=== PATIENT | male | born 1950 | race Caucasian/White ===

== ENCOUNTER 2016-12-27 08:51 | Inpatient (IN) | payer OTHER ==
[~2016-12-27] VITALS: Ht 172.7 cm; Wt 81.7 kg
[~2016-12-27 08:51] MED LIST: BACTDS PO; BEN25 PO; CEPH-443 PO; CLOT30CR24 TOP
[2016-12-27] MEDS ORDERED: SOD CHLORIDE 0.9% 1,000 ML IV STA ×2 (09:06→13:11)
--- NOTE | 2016-12-27 09:33 | ERA ---
ER Documentation Chief Complaint Date/Time DATE: 12/27/16 TIME: 09:23 Chief Complaint HAS BEEN HALLUCINATING DIZZY AND WEAK STARTED LAST NIGHT HPI This is a 66-year-old male with a known history of depression on Wellbutrin, hypertension and takes Desyrel for the past 6 months. The patient indicated he took 50mg of Desyrel and 200 mg of Lamictal at 12:15 AM, 9 hours prior to arrival. The patient's last known normal time was at 10:30 PM, 11 hours prior to arrival according to his . 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 His stated he had slept then and she woke him up at 7:30 AM and he appeared to be experiencing visual hallucinations as he stated there was a blue-eyed monster in the room. His indicated that he did not complain of a headache and that she immediately brought him to the emergency department to be further evaluated. He was able to ambulate but appeared very unsteady in his gait. She states he could have accidentally taken too much of his medication and denies any history of alcohol abuse. The patient denies any chest pain or pressure that radiates to the neck arm back or jaw. His stated his speech was slurred which has been present upon awakening at 7:30 AM. She indicates that the patient has been experiencing a significant amount of stress from his job over the past several weeks and has very poor sleep patterns as he has not been sleeping much over the past several days. He has not had a fever shaking or chills. There is been no recent remote sick contacts. He has not had a productive or nonproductive cough. ROS All systems reviewed and are negative except as per history of present illness. Medications Home Meds Reported Medications Trazodone Hcl* (Trazodone Hcl*) 50 Mg Tablet, 50 MG PO QHS, #30 TAB 12/27/16 Lamotrigine* (Lamictal*) 200 Mg Tablet, 200 MG PO QHS, TAB 12/27/16 Discontinued Scripts Cephalexin* (Keflex*) 500 Mg Capsule, 500 MG PO QID for 7 Days, CAP Prov:BENITA DORSEY PA-C 09/07/16 Sulfamethoxazole-Trimethoprim* (Bactrim* DS) 800-160 Mg Tab, 1 TAB PO BID for 7 Days, TAB Prov:BENITA DORSEYVirgil MCCORMACK 09/07/16 Diphenhydramine Hcl* (Benadryl*) 25 Mg Cap, 25 MG PO Q6 Y for ITCHING/RASH, #30 TAB Prov:BENITA DORSEYVirgil MCCORMACK 09/07/16 Clotrimazole* (Clotrimazole* AF) 1% - 30 Gm Cream.gm., 1 APPLIC TOP BID for 7 Days, TUB Prov:BENITA DORSEYVirgil MCCORMACK 09/07/16 Allergies Allergies: Coded Allergies: No Known Allergy (Unverified , 12/27/16) PMhx/Soc Hx Cardiac Disorders: Yes (htn) Hx Alcohol Use: No Hx Substance Use: No Hx Tobacco Use: No Physical Exam Vitals Vital Signs Date Time Temp Pulse Resp B/P Pulse Ox O2 Delivery O2 Flow Rate FiO2 12/27/16 10:47 89 18 97 Nasal Cannula 2.0 12/27/16 09:30 Nasal Cannula 2 12/27/16 09:05 46 14 159/81 100 Room Air 12/27/16 08:53 94.4 46 18 145/78 96 Physical Exam Constitutional:Well-developed. Well-nourished. HEENT:Normocephalic. Atraumatic.Pupils were 2 mm and reactive to light bilaterally with Dry mucous membranes.No tonsillar exudates. Neck: No nuchal rigidity. No lymphadenopathy. No posterior cervical spine tenderness or step-offs. Respiratory: Not using accessory muscles of respiration.Lungs were clear to auscultation bilaterally. No rhonchi. No rales. No wheezing. Cardiovascular: Regular rate regular rhythm.No murmurs. No rubs were appreciated.S1, S2 normal. Distal pulses are palpable 2+ bilaterally. GI: Abdomen was soft. Nontender. Non Distended. No pulsatile abdominal masses or bruits. No rebound. No guarding. Bowel sounds were present and normal. Muscle skeletal: Full range of motion of both the upper and lower extremities bilaterally.Normal muscle tone.No assymetrical calf tenderness or swelling. Skin: No petechia, no purpura. No lesions on the palms or the soles of the feet. No maculopapular rash. NEURO: Patient was alert, awake, orientated x3.No facial droop. Patient was drowsy but was answering all questions appropriately. Gait was not observed as patient was too weak to ambulate. Speech was slurred. Result Diagram: 12/27/1692612/27/16926 Results 24 hrs Laboratory Tests Test 12/27/16 09:27 12/27/16 10:25 Acetaminophen Level < 10.0ug/ml Activated Partial Thromboplast Time 26.9Sec Alanine Aminotransferase (ALT/SGPT) 40IU/L Albumin 3.8g/dl Albumin/Globulin Ratio 1.05 Alkaline Phosphatase 127IU/L Anion Gap 15 Aspartate Amino Transf (AST/SGOT) 28IU/L B-Type Natriuretic Peptide 39PG/ML Basophils # 0.010^3/ul Basophils % 0.2% Blood Urea Nitrogen 19mg/dl Calcium Level 9.0mg/dl Carbon Dioxide Level 28mmol/L Chloride Level 100mmol/L Creatine Kinase 229IU/L Creatine Kinase Index 1.5 Creatinine 0.94mg/dl Creatinine Kinase MB (Mass) 3.48ng/ml Digoxin Level < 0.4ng/ml Direct Bilirubin 0.00mg/dl Eosinophils # 0.110^3/ul Eosinophils % 2.3% Ethyl Alcohol Level < 10.0mg/dl Globulin 3.60g/dl Glucose Level 191mg/dl Hematocrit 38.8% Hemoglobin 14.2g/dl INR International Normalized Ratio 0.93 Indirect Bilirubin 0.4mg/dl Lymphocytes # 1.510^3/ul Lymphocytes % 27.6% Mean Corpuscular Hemoglobin 32.1pg Mean Corpuscular Hemoglobin Concent 36.6g/dl Mean Corpuscular Volume 87.6fl Mean Platelet Volume 9.2fl Monocytes # 0.510^3/ul Monocytes % 9.6% Neutrophils # 3.210^3/ul Neutrophils % 59.7% Nucleated Red Blood Cells # 0.010^3/ul Nucleated Red Blood Cells % 0.0/100WBC Platelet Count 43613^3/UL Potassium Level 3.2mmol/L Prothrombin Time 12.5Sec Prothrombin Time Ratio 1.0 Red Blood Count 4.4310^6/ul Red Cell Distribution Width 11.9% Salicylates Level < 1.0mg/dl Sodium Level 140mmol/L Total Bilirubin 0.4mg/dl Total Protein 7.4g/dl Troponin I < 0.012ng/ml White Blood Count 5.310^3/ul Lactic Acid Level 2.4mmol/L Current Medications Medications (Trade) Dose Ordered Sig/Ze Route PRN Reason Start Time Stop Time Status Last Admin Dose Admin Sodium Chloride (NS) 1,000 ml @ 1,000 mls/hr Q1H STAT IV 12/27/16 09:06 12/27/16 10:05 DC 12/27/16 09:34 Albuterol (Proventil 0.5% (Neb)) 5 mg ONCE STAT NEB 12/27/16 10:06 12/27/16 10:07 DC 12/27/16 10:47 Ipratropium [place] (Atrovent 0.02% (Neb)) 0.5 mg ONCE STAT NEB 12/27/16 10:06 12/27/16 10:07 DC 12/27/16 10:47 Potassium Chloride (Klor-Con 20) 20 meq ONCE STAT PO 12/27/16 10:20 12/27/16 10:23 DC Procedures/MDM The patient presented to the emergency department with an acute and persistent change in their mental status. The differential diagnosis is diverse however reversible causes such as hypoglycemia, opiate overdose, thiamine deficiency were immediately considered. The patient was placed on a bus monitor, continuous pulse oximetry and IV access was established. The patients airway was secure however hypoxic events such as anemia, shock, or severe pulmonary disease were all considered as etiologies in this patients presentation. Circulation assessed with good cap refill and did not require fluids or pressure support. Finger stick for rapid glucose determined to be normal. 12 Lead EKG tracing ordered and reviewed by myself showed: Sinus bradycardia 47 bpm and no arrhythmia. ID interval prolonged at 222 ms with a first-degree AV QRS duration normal. No ST segment elevation No ST segment depression. No changes consistent with acute ischemia. I obtained a 1 view chest radiograph for and reviewed by myself which indicated the following: No acute cardiopulmonary disease. Low lung volumes with bibasilar atelectasis Questionable loose bodies within the left glenohumeral joint The patient's lactic acid was elevated however I did not feel it patient was septic as there did not appear to be suspected or documented infection and the only SIRS criteria was that the temperature was less than 96.8 therefore antibiotics were not started but I did obtain blood cultures and urine cultures that can be followed up upon admission Given that the patient presented to the emergency department changed in his mental status I did obtain a CT scan of the patient's head which showed no acute intracerebral hemorrhage mass-effect or midline shift. The patient was hyperkalemic and supplemented with oral potassium. He received a liter bolus of normal saline. The patient's airway was intact and given the patient's physical exam findings I did feel the encephalopathy could have been a result of accidental overdose of his medications. He will however be admitted for observation for the encephalopathy to the hospitalist in serious condition. He will go to the telemetry service. Departure Diagnosis: Primary Impression: Hallucinations Additional Impressions: Encephalopathy acute Lactic acidosis Condition: Serious DYLLAN MONZON Dec 27, 2016 09:33
--- NOTE | 2016-12-27 09:39 | RADRPT ---
PROCEDURE: Chest x-ray CLINICAL INDICATION: Altered level of consciousness TECHNIQUE: Chest single view COMPARISON: None FINDINGS: The heart is normal in size. The pulmonary vessels are normal in caliber. There are low lung volume s with bibasilar atelectasis. Lungs otherwise the costophrenic angles sharp. Bones are osteopenic. There is questionable loose body within the left glenohumeral joint IMPRESSION: No acute cardiopulmonary disease. Low lung volumes with bibasilar atelectasis Questionable loose bodies within the left glenohumeral joint RPTAT: HH .Sebas Herbert MD, Date Time Electronically viewed and signed by .Sebas Herbert MD, on 12/27/2016 09:39 .W/
[2016-12-27 09:41] LABS: ADD SCAN DIFF NO
[2016-12-27 09:44] LABS: BASOPHILS % 0.2 % (0.0-2.0); EOSINOPHILS # 0.1 10^3/ul (0.0-0.5); EOSINOPHILS % 2.3 % (0.0-7.0); HEMATOCRIT 38.8 % (42.0-52.0); HEMOGLOBIN 14.2 g/dl (14.0-18.0); LYMPHOCYTES # 1.5 10^3/ul (0.8-2.9); LYMPHOCYTES % 27.6 % (15.0-51.0); MEAN CORPUSCULAR HEMOGLOBIN 32.1 pg (29.0-33.0); MEAN CORPUSCULAR HGB CONC 36.6 g/dl (32.0-37.0); MEAN CORPUSCULAR VOLUME 87.6 fl (82.0-101.0); MEAN PLATELET VOLUME 9.2 fl (7.4-10.4); MONOCYTE # 0.5 10^3/ul (0.3-0.9); MONOCYTES % 9.6 % (0.0-11.0); NEUTROPHIL # 3.2 10^3/ul (1.6-7.5); NEUTROPHILS % 59.7 % (39.0-77.0); PLATELET COUNT 150 10^3/UL (140-415); RED BLOOD COUNT 4.43 10^6/ul (4.70-6.10); RED CELL DISTRIBUTION WIDTH 11.9 % (11.5-14.5); WHITE BLOOD COUNT 5.3 10^3/ul (4.8-10.8)
[2016-12-27 09:51] LABS: ALBUMIN 3.8 g/dl (3.3-4.9)
[2016-12-27 09:52] LABS: CHLORIDE 100 mmol/L (97-110); POTASSIUM 3.2 mmol/L (3.5-5.1); SODIUM 140 mmol/L (135-144)
[2016-12-27 09:54] LABS: ALBUMIN/GLOBULIN RATIO 1.05; ALKALINE PHOSPHATASE 127 IU/L (42-121); ANION GAP 15 (8-16); ASPARTATE AMINO TRANSFERASE 28 IU/L (15-46); BILIRUBIN,INDIRECT 0.4 mg/dl (0-1.1); BILIRUBIN,TOTAL 0.4 mg/dl (0.2-1.3); CARBON DIOXIDE 28 mmol/L (21-31); CREATININE 0.94 mg/dl (0.61-1.24); TOTAL PROTEIN 7.4 g/dl (6.1-8.1)
[2016-12-27] MEDS ORDERED: LAMO200T18 PO (09:54)
[2016-12-27] MEDS ORDERED: TRAZ50TA18 PO (09:54)
[2016-12-27 09:55] LABS: ALANINE AMINOTRANSFERASE 40 IU/L (13-69); BLOOD UREA NITROGEN 19 mg/dl (7-20); CREATINE KINASE 229 IU/L (23-200); GLUCOSE 191 mg/dl (70-220); INR 0.93; PROTIME 12.5 Sec (12.2-14.2)
[2016-12-27 09:56] LABS: ETHANOL < 10.0 mg/dl; PARTIAL THROMBOPLASTIN TIME 26.9 Sec (25.0-35.0); SALICYLATE < 1.0 mg/dl (5.0-30.0)
[2016-12-27 10:01] LABS: ACETAMINOPHEN < 10.0 ug/ml (10.0-30.0)
[2016-12-27 10:04] LABS: B-TYPE NATRIURETIC PEPTIDE 39 PG/ML (0-125)
--- NOTE | 2016-12-27 10:04 | RADRPT ---
PROCEDURE: CT brain without contrast CLINICAL INDICATION: Hallucinations, dizziness, generalized weakness TECHNIQUE: CT of the brain without contrast performed on a multidetector CT scanner, with multiplan ar reformats. One or more of the following dose reduction techniques were used: Automated exposure control, adjustment in mA and / or kV according to patient size, use of iterative reconstructive moira hnique. CTDIvol = 40 mGy; DLP = 555 mGy-cm. COMPARISON: None available FINDINGS: No acute intracranial hemorrhage is identified. No extra-axial fluid collection is seen. There is no mass effect. No midline shift is identified. Ventricles and sulci are mildly enlarged compatible with generalized volume loss. There are minimal areas of hypodensity in the periventricular - deep white matter which are nonspeci fic but suggestive of chronic small vessel ischemic changes. Coates-white differentiation is preserve d. Osseous structures are unremarkable. Mastoid air cells and imaged paranasal sinuses grossly clear. IMPRESSION: 1. No evidence of acute intracranial pathology. 2. Mild generalized volume loss, with minimal chronic small vessel ischemic changes. RPTAT: VV .Robert Almaraz MD, Date Time Electronically viewed and signed by .Robert Almaraz MD, on 12/27/2016 10:03 .O/
[2016-12-27] MEDS ORDERED: ALBUTEROL 0.5% (NEB) 2.5 MG/0.5 ML AMP NEB STA (10:06)
[2016-12-27] MEDS ORDERED: IPRATROPIUM (NEB) 0.5 MG/2.5 ML AMP NEB STA (10:06)
[2016-12-27 10:09] LABS: CK-MB 3.48 ng/ml (0.0-2.4); TROPONIN-I < 0.012 ng/ml (0.00-0.12)
[2016-12-27] MEDS ORDERED: POTASSIUM CHLORIDE (SR) 20 MEQ TAB PO STA (10:20)
[2016-12-27] MEDS ORDERED: ONDANSETRON 4 MG INJ IV PRN ×2 (11:30→16:00)
[2016-12-27] MEDS ORDERED: ACETAMINOPHEN 325 MG TAB PO PRN (11:30)
[2016-12-27 11:46] LABS: ADD UMIC YES; URINE BILIRUBIN (Dip) NEGATIVE (NEGATIVE); URINE BLOOD (Dip) TRACE (NEGATIVE); URINE COLOR LT. YELLOW (YELLOW); URINE GLUCOSE (Dip) NEGATIVE (NEGATIVE); URINE KETONES (Dip) NEGATIVE (NEGATIVE); URINE LEUKOCYTE ESTERASE (Dip) NEGATIVE (NEGATIVE); URINE NITRITE (Dip) NEGATIVE (NEGATIVE); URINE TOTAL PROTEIN (Dip) NEGATIVE (NEGATIVE); URINE UROBILINOGEN (Dip) 0.2 E.U./dL (0.1-1.0)
[2016-12-27 12:14] LABS: BARBITURATES Negative (NEGATIVE); BENZODIAZEPINES Negative (NEGATIVE); CANNABINOIDS Negative (NEGATIVE); OPIATES Negative (NEGATIVE)
[2016-12-27 12:19] LABS: URINE RBCS 0-2 /HPF (0)
[2016-12-27 12:28] LABS: COCAINE Negative (NEGATIVE)
[2016-12-27] MEDS ORDERED: CLON-379 PO (13:15)
[2016-12-27] MEDS ORDERED: BUPR150T18 PO (13:15)
[2016-12-27] MEDS ORDERED: LISI20TA11 PO (13:15)
[2016-12-27] MEDS ORDERED: METO-429 PO (13:17)
[2016-12-27] MEDS ORDERED: POTA10TA37 PO (13:17)
[2016-12-27] MEDS ORDERED: AMLO5TAB4 PO (13:18)
[2016-12-27] MEDS ORDERED: ASPI-664 PO (13:18)
[2016-12-27] MEDS ORDERED: BUSP10TA2 PO (13:19)
[2016-12-27] MEDS ORDERED: HYDR12.58 PO (13:19)
[2016-12-27] MEDS ORDERED: hydrALAzine 20 MG INJ IV PRN (16:00)
[2016-12-27] MEDS ORDERED: NACL 0.9% 3 ML SYG IV SCH (16:00)
[2016-12-27 16:14] VITALS: TEMP 96.5
--- NOTE | 2016-12-27 16:20 | HP ---
DATE OF ADMISSION: 12/27/2016 CHIEF COMPLAINT: Altered mental status. HISTORY OF PRESENT ILLNESS: The patient is a 66-year-old male with history of depression on Wellbut rin, hypertension. The patient is on Desyrel for the past 6 months. He reportedly took 50 mg of De syrel and mg of Lamictal last night, and that is prior to arrival to the ED. The patient was reportedly last seen normal at 10:30 p.m. 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 The patient did not wake up his usual christiano e. When he woke up, he was experiencing visual hallucinations. The patient ambulated, but unsteady in his gait. The patient's stated that he could have taken too much of his medication. No hi story of any alcohol abuse. The patient had no reported complaints of any chest pain. The patient' s speech was slurred according to the , which was noted upon wakening in the a.m. The patient krishnan d reported experiencing a significant amount of stress from the job over the past several weeks. He has had poor sleep patterns. He has not had any other reported fevers, shaking or chills. No repo rted sick contacts. History is obtained by the ER physician as patient is lethargic and unable to p rovide any history. PAST MEDICAL HISTORY: Hypertension and depression. HOME MEDICATIONS: 1. Trazodone. 2. Lamictal. ALLERGIES: NO KNOWN DRUG ALLERGIES. FAMILY HISTORY: Unknown. SOCIAL HISTORY: No reports of any alcohol abuse, substance use or tobacco abuse per history obtaine d in the ER. REVIEW OF SYSTEMS: A 12-point review of systems cannot be obtained as the patient is lethargic. PHYSICAL EXAMINATION: VITAL SIGNS: Temperature 94.4, pulse 61, respiratory rate is 18, blood pressure is 132/75, saturati on 100% on room air. GENERAL: Unarousable, nonverbal. HEENT: Normocephalic, atraumatic. CHEST: Clear to auscultation. CARDIOVASCULAR: Regular rate and rhythm. ABDOMEN: Nondistended, nontender, soft. EXTREMITIES: No clubbing, cyanosis, or edema. LABORATORY DATA: White count 7.3, hemoglobin 14.2, platelets 150. Chemistry within normal limits e xcept for a potassium of 3.2. Lactic acid was 2.4, now 1.8. Alkaline phosphatase is 127. Creatini ne kinase 229. INR is 0.93. UA within normal limits. Urine tox is negative. DIAGNOSTIC DATA: Chest x-ray shows no acute disease, atelectasis. Questionable loose bodies within the left glenohumeral joint. Brain CT shows no evidence of acute pathology, mild generalized volum e loss, minimal chronic small vessel ischemic changes. ASSESSMENT AND PLAN: 1. Acute encephalopathy, likely secondary to therapeutic drug overdose. It is unknown if patient w as intentionally trying to overdose or it was an accident. We will monitor. We will give IV fluids . 2. History of hypertension. Keep patient n.p.o. We will give hydralazine as needed. 3. Hypokalemia has been repleted in the ED. 4. Prophylaxis: Sequential compression devices. Dictated By: ALYSSA LUND MD BS/NTS Conf#: [id number] DID#: [id number]
[2016-12-27 17:26] VITALS: PULSE 47
[2016-12-27 17:30] VITALS: Ht 172.7 cm; Wt 81.7 kg
[2016-12-27 18:02] VITALS: BP 156/82; PULSE 48; RESP 16
[2016-12-27] MEDS: D5W-0.45 NACL + KCL 20 MEQ 1,000 ML IV SCH (19:06)
[2016-12-27 20:00] VITALS: BP 150/71; RESP 20
[2016-12-27 20:33] VITALS: PULSE 46
[2016-12-28] VITALS (7 sets, daily range): BP systolic 134–142; BP diastolic 66–78; PULSE 47–78; RESP 20
[2016-12-28] MEDS: D5W-0.45 NACL + KCL 20 MEQ 1,000 ML IV SCH ×3 (01:39→11:40)
[2016-12-28 07:29] LABS: ADD SCAN DIFF NO
[2016-12-28 07:30] LABS: BASOPHILS % 0.2 % (0.0-2.0); EOSINOPHILS # 0.1 10^3/ul (0.0-0.5); EOSINOPHILS % 1.9 % (0.0-7.0); HEMATOCRIT 39.4 % (42.0-52.0); HEMOGLOBIN 14.3 g/dl (14.0-18.0); LYMPHOCYTES # 1.3 10^3/ul (0.8-2.9); LYMPHOCYTES % 22.5 % (15.0-51.0); MEAN CORPUSCULAR HEMOGLOBIN 31.8 pg (29.0-33.0); MEAN CORPUSCULAR HGB CONC 36.3 g/dl (32.0-37.0); MEAN CORPUSCULAR VOLUME 87.6 fl (82.0-101.0); MEAN PLATELET VOLUME 9.5 fl (7.4-10.4); MONOCYTE # 0.4 10^3/ul (0.3-0.9); MONOCYTES % 6.3 % (0.0-11.0); NEUTROPHIL # 4.1 10^3/ul (1.6-7.5); NEUTROPHILS % 68.8 % (39.0-77.0); PLATELET COUNT 149 10^3/UL (140-415); WHITE BLOOD COUNT 5.9 10^3/ul (4.8-10.8)
[2016-12-28 07:44] LABS: ALBUMIN 3.6 g/dl (3.3-4.9)
[2016-12-28 07:45] LABS: POTASSIUM 3.5 mmol/L (3.5-5.1)
[2016-12-28 07:47] LABS: ALBUMIN/GLOBULIN RATIO 1.09; BILIRUBIN,INDIRECT 0.5 mg/dl (0-1.1); BILIRUBIN,TOTAL 0.5 mg/dl (0.2-1.3); CREATININE 0.78 mg/dl (0.61-1.24); TOTAL PROTEIN 6.9 g/dl (6.1-8.1)
[2016-12-28 07:48] LABS: CALCIUM 8.7 mg/dl (8.4-10.2); MAGNESIUM 1.9 mg/dl (1.7-2.5); PHOSPHORUS 2.7 mg/dl (2.5-4.9)
[2016-12-28] MEDS ORDERED: INFLUENZA VIRUS VACCINE 0.5 ML (DISPENSING) IM* ONE (09:00)
--- NOTE | 2016-12-28 11:04 | PDOCDIS ---
Discharge Instructions CONDITION Patient Condition: Good HOME CARE INSTRUCTIONS: Diet Instructions: Regular ACTIVITY: Activity Restrictions: No Restrictions FOLLOW UP/APPOINTMENTS Appointments F/U WITH YOUR PCP IN 1-2 WEEKS ALYSSA LUND Dec 28, 2016 11:03
[2016-12-28] MEDS ORDERED: NYST1000 PO (11:11)
[2016-12-28] MEDS ORDERED: NYSTATIN SUSP 5 ML CUP PO SCH (13:00)
--- NOTE | 2016-12-28 16:38 | DS ---
DATE OF ADMISSION: 12/27/2016 DATE OF DISCHARGE: 12/28/2016 DISCHARGE DIAGNOSES: 1. Acute encephalopathy secondary to accidental drug overdose. The patient denies any suicidal ashley ation, has no history of reported suicidal attempt. The patient reportedly overdosed accidently on Desyrel on Lamictal. His mentation is now back to baseline. 2. History of hypertension, stable. HOSPITAL COURSE: The patient is a 66-year-old male with a history of depression and possibly some o ther psychiatric conditions. The patient is on Desyrel and Lamictal. The patient accidentally over dosed. He was behaving usually yesterday. His speech was slurred. He was monitored overnight. He was given IV fluids. Mentation improved. On the day of discharge, his vitals, labs and physical e xam were stable. He had no acute complaints. He denied any suicidal ideation. He states that he b elieves that he doubled up on his medications accidentally. He adamantly denies any suicidal ideati on or suicidal attempts. He is felt to be stable for discharge. Once again his vitals, labs and ph ysical exam were stable on the day of discharge. He had no acute complaints. Questions answered. CONDITION ON DISCHARGE: Stable. DISPOSITION: To home. MEDICATIONS: The patient to continue his usual home medications. FOLLOWUP: The patient is to follow up with PCP in 1 to 2 weeks. Greater than 30 minutes were spent coordinating discharge of patient. Dictated By: ALYSSA LUND MD BS/NTS Conf#: [id number] DID#: [id number]
== END 2016-12-28 15:05 | disposition home or self-care (01) | DRG 93 ==
LOC: E/R 08:51 → TEL 11:28
PROVIDERS: ADMIT Hospitalist; ATTEND Hospitalist
DX: G92 Toxic encephalopathy (principal); I10 Essential (primary) hypertension; F32.9 Major depressive disorder, single episode, unspecified; T42.6X1A Poisoning by other antiepileptic and sedative-hypnotic drugs, accidental (unintentional), initial encounter; T43.211A Poisoning by selective serotonin and norepinephrine reuptake inhibitors, accidental (unintentional), initial encounter; Y92.009 Unspecified place in unspecified non-institutional (private) residence as the place of occurrence of the external cause
CPT/HCPCS: 70450; 71010; 80053; 80162; 80306; 80307; 81001; 81003; 82550; 82553; 83036; 83605; 83735; 83880; 84100; 84484; 85025; 85610; 85730; 87040; 87086; 90686; 93005; 94664; 96360; J3480; J7030